=== PATIENT | male | born 1985 | race Caucasian/White ===

== ENCOUNTER 2016-07-26 04:44 | Emergency (ER) | payer OTHER ==
[~2016-07-26] VITALS: Ht 172.7 cm; Wt 63.5 kg
[2016-07-26 06:02] VITALS: BP 117/75
== END 2016-07-26 06:02 | disposition home or self-care (01) ==
LOC: ER 04:44
DX: R07.89 Other chest pain (principal)
CPT/HCPCS: 71010; 99283; A4606; Z7610